=== PATIENT | female | born 1960 | race Caucasian/White ===

== ENCOUNTER 2020-10-02 20:08 | Emergency (ER) | payer OTHER ==
[~2020-10-02] VITALS: Ht 165.1 cm; Wt 68.0 kg
--- NOTE | 2020-10-02 20:10 | NUR ---
pt [id number]. bibself cp gen pt x3 days. No acute distress noted vss.
--- NOTE | 2020-10-02 20:21 | NUR ---
EMT AT BED SIDE FOR EKG
[2020-10-02 20:35] LABS: BASOPHILS # (AUTO) 0.1 /CMM (0.0-0.2); BASOPHILS % (AUTO) 0.8 % (0.0-2.0); EOSINOPHILS % (AUTO) 0.5 % (0.0-6.0); HEMATOCRIT 41 % (33-45); LYMPHOCYTES # (AUTO) 2.7 /CMM (0.8-4.8); LYMPHOCYTES % (AUTO) 26.5 % (20.0-44.0); MEAN CORPUSCULAR HGB CONC 34 g/dl (31.0-36.0); MEAN CORPUSCULAR VOLUME 92 fL (82-100); MONOCYTES # (AUTO) 0.5 /CMM (0.1-1.30); MONOCYTES % (AUTO) 4.5 % (2.0-12.0); NEUTROPHILS % (AUTO) 67.7 % (43.0-81.0); PLATELET COUNT (AUTO) 419 /CMM (150-450); RED BLOOD CELL COUNT(AUTO) 4.45 MIL/uL (4.0-5.2); WHITE BLOOD COUNT (AUTO) 10.4 K/uL (4.3-11.0)
[2020-10-02 20:43] LABS: CALCIUM, SERUM 9.3 mg/dL (8.5-10.1); CARBON DIOXIDE 27 mmol/L (21-32); CHLORIDE 101 mmol/L (98-107); GLUCOSE 111 mg/dL (74-106); POTASSIUM 4.2 mmol/L (3.5-5.1); SODIUM SERUM 138 mmol/L (136-145); UREA NITROGEN, BLOOD 23 mg/dL (7-18)
[2020-10-02] MEDS ORDERED: IV NS 0.9% 250 ML IV ONE (20:55)
[2020-10-02] MEDS ORDERED: IOHEXOL-350 100 ML VIAL IV ONE (20:55)
[2020-10-02 20:58] LABS: B-TYPE NATRIURETIC PEPTIDE 21 PG/ML (0-125)
[2020-10-02] MEDS ORDERED: IV NS 0.9% 1,000 ML IV ONE (21:00)
[2020-10-02] MEDS ORDERED: LORAZEPAM INJ 2 MG/ML VIAL IV ONE (21:00)
[2020-10-02] MEDS ORDERED: LORAZEPAM INJ 2 MG/ML VIAL ONE (21:02)
--- NOTE | 2020-10-02 21:25 | NUR ---
ATIVAN 1MG IVP REFUSED BY PT. WASTED WITH FERNANDA Moran RN.
[2020-10-02] MEDS ORDERED: ACYC200C PO (21:51)
--- NOTE | 2020-10-02 22:08 | NUR ---
IV removed. Catheter intact and site benign. Pressure and 4x4 applied to site. No bleeding noted.
--- NOTE | 2020-10-02 22:08 | NUR ---
Patient discharged to home in stable condition. Written and verbal after care instructions given. Patient verbalizes understanding of instruction and RX. Pt ambulated out of ED. VSS.
[2020-10-02 22:09] VITALS: BP 132/76
== END 2020-10-02 22:15 | disposition home or self-care (01) ==
LOC: ER 20:08
DX: R00.2 Palpitations (principal); B00.1 Herpesviral vesicular dermatitis; R07.89 Other chest pain; E78.5 Hyperlipidemia, unspecified
CPT/HCPCS: 36415; 71045; 71275; 80048; 83880; 84484; 85025; 85378; 93005 ×2; 96360; 99285; J2060; J7030; J7050; Q9967